=== PATIENT | male | born 1940 | race Caucasian/White ===

== ENCOUNTER → 2023-02-05 | Outpatient (CLI) | payer MEDICARE, OTHER ==
[~2023-02-05] MED LIST: ALBU2.5V10 INH; AMLO1TAB24 PO; BUDE10.7 INH; CLOP75TA2 PEG; CLOP75TA2 PO; LOSA100T46 PO; LOSA50TA28 PEG; METO1TAB33 PO; METO1TAB87 PEG; MIRA3350 PEG; ONDA-84 PO; PROC10TA5 PO; ROSU20TA61 PEG
== END ==
LOC: M ONCR 12:35
PROVIDERS: ATTEND General Practice
DX: C15.5 Malignant neoplasm of lower third of esophagus (principal); E78.5 Hyperlipidemia, unspecified; I11.9 Hypertensive heart disease without heart failure; I25.2 Old myocardial infarction; I47.1 Supraventricular tachycardia; I73.9 Peripheral vascular disease, unspecified; Z71.2 Person consulting for explanation of examination or test findings; Z72.89 Other problems related to lifestyle; Z79.02 Long term (current) use of antithrombotics/antiplatelets; Z79.899 Other long term (current) drug therapy; Z87.891 Personal history of nicotine dependence

== ENCOUNTER → 2023-02-11 | Outpatient (CLI) | payer MEDICARE, OTHER ==
[~2023-02-11] MED LIST changes: -CLOP75TA2 PEG; +LOSA100T46; -LOSA100T46 PO; -LOSA50TA28 PEG; -METO1TAB87 PEG; -MIRA3350 PEG; -ONDA-84 PO; -PROC10TA5 PO; -ROSU20TA61 PEG
== END ==
LOC: M PLARAD 15:30
PROVIDERS: ATTEND Surgery
DX: C15.5 Malignant neoplasm of lower third of esophagus (principal); N21.0 Calculus in bladder; S22.42XA Multiple fractures of ribs, left side, initial encounter for closed fracture; X58.XXXA Exposure to other specified factors, initial encounter; Y92.9 Unspecified place or not applicable; Y93.9 Activity, unspecified; Y99.9 Unspecified external cause status; K80.20 Calculus of gallbladder without cholecystitis without obstruction
CPT/HCPCS: 78815; A9552

== ENCOUNTER 2023-02-13 12:39 | Outpatient (RCR) | payer MEDICARE, OTHER ==
[~2023-02-13 12:39] MED LIST changes: -LOSA100T46; +LOSA100T46 PO
[2023-02-18] MEDS ORDERED: ONDA-84 PO (10:23)
[2023-02-18] MEDS ORDERED: PROC10TA5 PO (10:23)
== END 2023-02-22 ==
LOC: M ONCR 12:39
PROVIDERS: ATTEND General Practice
DX: C15.5 Malignant neoplasm of lower third of esophagus (principal)

== ENCOUNTER 2023-02-20 08:22 | Inpatient (IN) | payer MEDICARE, OTHER ==
[~2023-02-20] VITALS: Ht 177.8 cm; Wt 67.0 kg
[~2023-02-20 08:22] MED LIST changes: +ONDA-84 PO; +PROC10TA5 PO
[2023-02-20] MEDS ORDERED: NS 1,000 ML IV ONE (08:50)
[2023-02-20 09:33] LABS: BASO # 0.1 10^3/uL (0.0-0.2); BASO % 0.7 % (0.0-1.0); EOS # 0.2 10^3/uL (0.0-0.5); EOS % 2.4 % (0.0-3.0); HEMATOCRIT 41.4 % (42.0-52.0); HEMOGLOBIN 14.1 g/dl (13.5-17.5); LYMPH # 0.8 10^3/uL (1.5-5.0); LYMPH % 7.8 % (24.0-44.0); MEAN CORPUSCULAR HEMOGLOBIN 35.5 pg (27.0-33.0); MEAN CORPUSCULAR HGB CONC 34.1 g/dl (32.0-36.5); MEAN CORPUSCULAR VOLUME 104.3 fl (80.0-96.0); MONO # 1.2 10^3/uL (0.0-0.8); MONO % 11.6 % (2.0-8.0); NEUTROPHILS # 7.8 10^3/uL (1.5-8.5); PLATELET COUNT, AUTOMATED 189 10^3/uL (150-450); RED BLOOD COUNT 3.97 10^6/uL (4.30-6.10); WHITE BLOOD COUNT 10.2 10^3/uL (4.0-10.0)
[2023-02-20 09:38] LABS: LIPASE 49 U/L (12-53)
[2023-02-20 09:40] LABS: ALBUMIN 3.6 G/DL (3.2-5.2); ALKALINE PHOSPHATASE 100 U/L (46-116); ALT/SGPT 58 U/L (7.0-40); AST/SGOT 55 U/L (<34); BILIRUBIN,DIRECT 0.3 MG/DL (<0.4); BLOOD UREA NITROGEN 42 MG/DL (9-23); CALCIUM LEVEL 9.4 MG/DL (8.3-10.6); CARBON DIOXIDE LEVEL 31 MMOL/L (20-31); CHLORIDE LEVEL 106 MMOL/L (98-107); CREATININE FOR GFR 1.19 MG/DL (0.70-1.30); GLOMERULAR FILTRATION RATE > 60.0 (>35); GLUCOSE, FASTING 89 MG/DL (74-106); MAGNESIUM LEVEL 1.9 MG/DL (1.8-2.4); POTASSIUM SERUM 3.8 MMOL/L (3.5-5.1); SODIUM LEVEL 144 MMOL/L (136-145); TOTAL PROTEIN 6.2 G/DL (5.7-8.2)
[2023-02-20] MEDS ORDERED: DEXTROSE 50% 50ML SYRINGE IV PRN (11:35)
[2023-02-20] MEDS ORDERED: GLUCOSE 4GM CHEW TABLET PO PRN (11:35)
[2023-02-20] MEDS ORDERED: GLUCAGON INJ 1MG VIAL SC PRN (11:35)
[2023-02-20] MEDS: D5W/0.45% SODIUM CHLORIDE 1,000 ML IV SCH ×2 (12:33→21:51)
[2023-02-20] MEDS ORDERED: MED REC IN PROGRESS XX SCH (12:40)
[2023-02-20] MEDS ORDERED: HOME MED LIST COMPLETE! XX SCH (12:50)
[2023-02-20 13:30] VITALS: BP 154/76; TEMP 97.2; O2SAT 94
[2023-02-20] MEDS ORDERED: NITROGLYCERIN 2% OINT 1 GM *U/D* PKT TOP ONE (15:00)
[2023-02-20] MEDS ORDERED: LIDOCAINE 1% MDV 20ML VIAL As Ordered ONE (16:26)
[2023-02-20] MEDS ORDERED: LOSARTAN 25 MG TAB PO ONE (16:45)
[2023-02-20] MEDS ORDERED: SODIUM CHLORIDE 0.9% INJ 10 ML SYR IV PRN (18:15)
[2023-02-20 18:23] VITALS: BP 142/71
[2023-02-20] MEDS: LOSARTAN 50MG TABLET PO SCH (20:56)
[2023-02-20] MEDS ORDERED: METOPROLOL SUCC (TopROL XL) 100MG *XL* TAB PO SCH (21:00)
[2023-02-20 22:00] VITALS: BP 152/75; TEMP 98.2; O2SAT 95
[2023-02-21 05:22] VITALS: BP 153/78; TEMP 97.7; O2SAT 96
[2023-02-21] MEDS: SODIUM CHLORIDE 0.9% INJ 10 ML SYR IV SCH ×2 (05:50→17:35)
[2023-02-21 05:53] LABS: HEMATOCRIT 36.9 % (42.0-52.0); HEMOGLOBIN 12.8 g/dl (13.5-17.5); MEAN CORPUSCULAR HEMOGLOBIN 36.1 pg (27.0-33.0); MEAN CORPUSCULAR HGB CONC 34.7 g/dl (32.0-36.5); MEAN CORPUSCULAR VOLUME 103.9 fl (80.0-96.0); PLATELET COUNT, AUTOMATED 142 10^3/uL (150-450); RED BLOOD COUNT 3.55 10^6/uL (4.30-6.10)
[2023-02-21] MEDS ORDERED: diphenhydrAMINE 50MG CAP PO ONE (06:00)
[2023-02-21] MEDS ORDERED: ACETAMINOPHEN 500 MG TAB PO ONE (06:00)
[2023-02-21 06:09] LABS: INR 1.07; PROTHROMBIN TIME 14.1 SECONDS (12.5-14.5)
[2023-02-21 06:10] LABS: PARTIAL THROMBOPLASTIN TIME 39.7 SECONDS (24.8-34.2)
[2023-02-21 06:11] LABS: BLOOD UREA NITROGEN 23 MG/DL (9-23); CALCIUM LEVEL 9.3 MG/DL (8.3-10.6); CARBON DIOXIDE LEVEL 29 MMOL/L (20-31); CHLORIDE LEVEL 106 MMOL/L (98-107); CREATININE FOR GFR 0.84 MG/DL (0.70-1.30); GLOMERULAR FILTRATION RATE > 60.0 (>35); GLUCOSE, FASTING 96 MG/DL (74-106); POTASSIUM SERUM 3.5 MMOL/L (3.5-5.1); SODIUM LEVEL 141 MMOL/L (136-145)
[2023-02-21 06:33] VITALS: BP 150/70; TEMP 97.5; O2SAT 95
[2023-02-21 06:45] VITALS: BP 148/71; TEMP 97.7; O2SAT 94
[2023-02-21 10:30] VITALS: BP 150/73; TEMP 98.6; O2SAT 94
[2023-02-21] MEDS: D5W/0.45% SODIUM CHLORIDE 1,000 ML IV SCH ×2 (12:31→17:35)
[2023-02-21 14:00] VITALS: BP 155/74; TEMP 97.9; O2SAT 95
[2023-02-21] MEDS ORDERED: propofoL 200 MG/20 ML VIAL As Ordered ONE (15:15)
[2023-02-21] MEDS ORDERED: LIDOCAINE 2% 100MG/5ML SDV (FOR ANES.) As Ordered ONE (15:15)
[2023-02-21] MEDS ORDERED: fentaNYL 100 MCG/2 ML INJECTION As Ordered ONE (15:16)
[2023-02-21 16:15] VITALS: BP 159/75; TEMP 97.5; O2SAT 90
[2023-02-21] MEDS: LOSARTAN 50MG TABLET PO SCH (20:49)
[2023-02-22] MEDS: D5W/0.45% SODIUM CHLORIDE 1,000 ML IV SCH (04:15)
[2023-02-22 05:43] VITALS: BP 118/70; TEMP 98.6; O2SAT 94
[2023-02-22] MEDS: METOPROLOL TART 25 MG TABLET PO SCH ×3 (05:47→11:45)
[2023-02-22] MEDS: SODIUM CHLORIDE 0.9% INJ 10 ML SYR IV SCH ×2 (05:55→17:57)
[2023-02-22 06:37] LABS: HEMOGLOBIN 12.4 g/dl (13.5-17.5); MEAN CORPUSCULAR HGB CONC 33.5 g/dl (32.0-36.5); MEAN CORPUSCULAR VOLUME 104.5 fl (80.0-96.0); PLATELET COUNT, AUTOMATED 146 10^3/uL (150-450); RED BLOOD COUNT 3.54 10^6/uL (4.30-6.10); WHITE BLOOD COUNT 13.1 10^3/uL (4.0-10.0)
[2023-02-22 06:56] LABS: PREALBUMIN 10.6 MG/DL (10.0-40.0)
[2023-02-22 07:00] LABS: ALBUMIN 2.7 G/DL (3.2-5.2); ALKALINE PHOSPHATASE 87 U/L (46-116); ALT/SGPT 43 U/L (7.0-40); AST/SGOT 15 U/L (<34); BILIRUBIN,TOTAL 1.1 MG/DL (0.3-1.2); BLOOD UREA NITROGEN 12 MG/DL (9-23); CALCIUM LEVEL 7.9 MG/DL (8.3-10.6); CARBON DIOXIDE LEVEL 30 MMOL/L (20-31); CHLORIDE LEVEL 102 MMOL/L (98-107); CREATININE FOR GFR 0.85 MG/DL (0.70-1.30); GLOMERULAR FILTRATION RATE > 60.0 (>35); GLUCOSE, FASTING 116 MG/DL (74-106); POTASSIUM SERUM 3.5 MMOL/L (3.5-5.1); SODIUM LEVEL 136 MMOL/L (136-145); TOTAL PROTEIN 5.1 G/DL (5.7-8.2)
[2023-02-22] MEDS ORDERED: NITROGLYCERIN 0.4MG SUBL TABLET SL PRN (08:20)
[2023-02-22] MEDS ORDERED: NITROGLYCERIN 0.4MG SUBL TABLET SL STA (08:20)
[2023-02-22] MEDS ORDERED: PANTOPRAZOLE 40MG VIAL IV ONE (08:20)
[2023-02-22] MEDS ORDERED: SODIUM CHLORIDE 0.9% INJ 10 ML SYR IV PRN (08:25)
[2023-02-22] MEDS ORDERED: ISOVUE-370 76% 100ML VIAL As Ordered ONE (08:49)
[2023-02-22 08:53] LABS: CK-MB VALUE MASS 1.2 NG/ML (<3.6)
[2023-02-22 08:54] LABS: CPK CREATINE PHOSPHOKINASE 43 U/L (46-171); MB/CK RELATIVE INDEX 2.79 (< OR =4)
[2023-02-22 11:00] LABS: PROCALCITONIN 0.09 ng/ml
[2023-02-22] MEDS ORDERED: BISACODYL 10MG SUPP PR PRN (14:05)
[2023-02-22] MEDS ORDERED: ONDANSETRON 4MG ORAL DISINTEGRATING TAB PO PRN (14:05)
[2023-02-22] MEDS ORDERED: LACTULOSE 20GM/30ML SYRUP UDC PO PRN (14:05)
[2023-02-22] MEDS ORDERED: ONDANSETRON 4MG 2ML VIAL IV ONE (14:15)
[2023-02-22 14:51] LABS: C REACTIVE PROTEIN QUANTITATIV 11.9 MG/DL (<1.0)
[2023-02-22 14:52] LABS: CK-MB VALUE MASS 1.8 NG/ML (<3.6)
[2023-02-22 14:56] LABS: MB/CK RELATIVE INDEX 3.21 (< OR =4)
[2023-02-22 15:04] LABS: PROCALCITONIN 0.12 ng/ml
[2023-02-22] MEDS ORDERED: INSULIN LISPRO (NovoLOG) PER UNIT SC SCH (18:00)
[2023-02-22] MEDS ORDERED: MULTIVITAMIN -ADULT INJECTION 10 ML, ZINC/COPPER/MANGANESE/SELENIUM 1 ML in AMINO AC/EL... IV SCH (18:00)
[2023-02-22] MEDS ORDERED: FAT EMULSION IV 250 ML IV ONE (18:00)
[2023-02-22] MEDS: LOSARTAN 50MG TABLET PO SCH (20:32)
[2023-02-22] MEDS: METOPROLOL SUCC (TopROL XL) 100MG *XL* TAB PO SCH (20:33)
[2023-02-22 20:50] LABS: CK-MB VALUE MASS 2.4 NG/ML (<3.6); MB/CK RELATIVE INDEX 5.1 (< OR =4)
[2023-02-23] MEDS: SODIUM CHLORIDE 0.9% INJ 10 ML SYR IV SCH ×2 (05:55→18:24)
[2023-02-23 06:00] VITALS: BP 139/58; TEMP 97.7; O2SAT 95
[2023-02-23 06:29] LABS: BASO % 0.5 % (0.0-1.0); EOS # 0.3 10^3/uL (0.0-0.5); EOS % 3.3 % (0.0-3.0); HEMATOCRIT 37.1 % (42.0-52.0); HEMOGLOBIN 12.8 g/dl (13.5-17.5); LYMPH # 0.7 10^3/uL (1.5-5.0); LYMPH % 8.6 % (24.0-44.0); MEAN CORPUSCULAR HEMOGLOBIN 35.7 pg (27.0-33.0); MEAN CORPUSCULAR HGB CONC 34.5 g/dl (32.0-36.5); MEAN CORPUSCULAR VOLUME 103.3 fl (80.0-96.0); MONO # 0.8 10^3/uL (0.0-0.8); MONO % 9.9 % (2.0-8.0); NEUTROPHILS # 6.5 10^3/uL (1.5-8.5); NEUTROPHILS % 77.1 % (36.0-66.0); PLATELET COUNT, AUTOMATED 166 10^3/uL (150-450); RED BLOOD COUNT 3.59 10^6/uL (4.30-6.10); WHITE BLOOD COUNT 8.4 10^3/uL (4.0-10.0)
[2023-02-23 06:44] LABS: BLOOD UREA NITROGEN 14 MG/DL (9-23); CALCIUM LEVEL 8.4 MG/DL (8.3-10.6); CARBON DIOXIDE LEVEL 32 MMOL/L (20-31); CHLORIDE LEVEL 102 MMOL/L (98-107); CREATININE FOR GFR 1.03 MG/DL (0.70-1.30); GLOMERULAR FILTRATION RATE > 60.0 (>35); GLUCOSE, FASTING 112 MG/DL (74-106); POTASSIUM SERUM 3.3 MMOL/L (3.5-5.1); SODIUM LEVEL 140 MMOL/L (136-145)
[2023-02-23 06:57] LABS: ERYTHROCYTE SEDIMENTATION RATE 29 mm/hr (0-20)
[2023-02-23] MEDS ORDERED: POTASSIUM CHLORIDE 10% LIQ 20MEQ/15ML UDC PO ONE (07:00)
[2023-02-23 16:15] LABS: PROCALCITONIN 0.08 ng/ml
[2023-02-23] MEDS: INSULIN LISPRO (NovoLOG) PER UNIT SC SCH (18:00)
[2023-02-23] MEDS ORDERED: AMINO AC/ELECTROLYTE/DEX/CALC 1,000 ML IV SCH (18:00)
[2023-02-23] MEDS ORDERED: FAT EMULSION IV 250 ML IV ONE (18:00)
[2023-02-23] MEDS: LOSARTAN 50MG TABLET PO SCH (21:00)
[2023-02-23] MEDS: METOPROLOL SUCC (TopROL XL) 100MG *XL* TAB PO SCH ×2 (21:00→21:20)
[2023-02-24] MEDS: SODIUM CHLORIDE 0.9% INJ 10 ML SYR IV SCH ×2 (05:35→18:25)
[2023-02-24] MEDS: INSULIN LISPRO (NovoLOG) PER UNIT SC SCH ×4 (05:39→18:00)
[2023-02-24 06:00] VITALS: BP 142/78; TEMP 97.9; O2SAT 98
[2023-02-24 06:27] LABS: BASO % 0.4 % (0.0-1.0); EOS # 0.2 10^3/uL (0.0-0.5); EOS % 2.3 % (0.0-3.0); HEMATOCRIT 35.7 % (42.0-52.0); HEMOGLOBIN 12.4 g/dl (13.5-17.5); LYMPH # 0.6 10^3/uL (1.5-5.0); LYMPH % 6.7 % (24.0-44.0); MEAN CORPUSCULAR HEMOGLOBIN 35.9 pg (27.0-33.0); MEAN CORPUSCULAR HGB CONC 34.7 g/dl (32.0-36.5); MEAN CORPUSCULAR VOLUME 103.5 fl (80.0-96.0); MONO # 0.8 10^3/uL (0.0-0.8); MONO % 9.2 % (2.0-8.0); NEUTROPHILS # 6.7 10^3/uL (1.5-8.5); NEUTROPHILS % 80.8 % (36.0-66.0); PLATELET COUNT, AUTOMATED 165 10^3/uL (150-450); RED BLOOD COUNT 3.45 10^6/uL (4.30-6.10); WHITE BLOOD COUNT 8.3 10^3/uL (4.0-10.0)
[2023-02-24 06:52] LABS: ERYTHROCYTE SEDIMENTATION RATE 26 mm/hr (0-20)
[2023-02-24 06:57] LABS: BLOOD UREA NITROGEN 12 MG/DL (9-23); CALCIUM LEVEL 8.8 MG/DL (8.3-10.6); CARBON DIOXIDE LEVEL 32 MMOL/L (20-31); CHLORIDE LEVEL 103 MMOL/L (98-107); CREATININE FOR GFR 0.88 MG/DL (0.70-1.30); GLOMERULAR FILTRATION RATE > 60.0 (>35); GLUCOSE, FASTING 98 MG/DL (74-106); POTASSIUM SERUM 3.5 MMOL/L (3.5-5.1); SODIUM LEVEL 137 MMOL/L (136-145)
[2023-02-24 07:09] LABS: PROCALCITONIN 0.07 ng/ml
[2023-02-24] MEDS ORDERED: FAT EMULSION IV 250 ML IV ONE (18:00)
[2023-02-24] MEDS ORDERED: AMINO AC/ELECTROLYTE/DEX/CALC 2,000 ML IV SCH (18:00)
[2023-02-24] MEDS: METOPROLOL SUCC (TopROL XL) 100MG *XL* TAB PO SCH (20:18)
[2023-02-24] MEDS: LOSARTAN 50MG TABLET PO SCH (20:18)
[2023-02-25] MEDS: SODIUM CHLORIDE 0.9% INJ 10 ML SYR IV SCH ×2 (05:45→18:03)
[2023-02-25] MEDS: INSULIN LISPRO (NovoLOG) PER UNIT SC SCH ×4 (05:45→17:25)
[2023-02-25 06:00] VITALS: BP 152/84; TEMP 98.2; O2SAT 94
[2023-02-25 06:07] LABS: BASO % 0.4 % (0.0-1.0); EOS # 0.3 10^3/uL (0.0-0.5); EOS % 4.2 % (0.0-3.0); HEMATOCRIT 35.7 % (42.0-52.0); HEMOGLOBIN 12.5 g/dl (13.5-17.5); LYMPH # 0.6 10^3/uL (1.5-5.0); LYMPH % 8.4 % (24.0-44.0); MEAN CORPUSCULAR HEMOGLOBIN 35.6 pg (27.0-33.0); MEAN CORPUSCULAR VOLUME 101.7 fl (80.0-96.0); MONO # 0.7 10^3/uL (0.0-0.8); MONO % 10.3 % (2.0-8.0); NEUTROPHILS # 5.3 10^3/uL (1.5-8.5); NEUTROPHILS % 76.1 % (36.0-66.0); PLATELET COUNT, AUTOMATED 167 10^3/uL (150-450); RED BLOOD COUNT 3.51 10^6/uL (4.30-6.10); WHITE BLOOD COUNT 6.9 10^3/uL (4.0-10.0)
[2023-02-25 06:17] LABS: BLOOD UREA NITROGEN 11 MG/DL (9-23); CALCIUM LEVEL 8.8 MG/DL (8.3-10.6); CARBON DIOXIDE LEVEL 33 MMOL/L (20-31); CHLORIDE LEVEL 102 MMOL/L (98-107); CREATININE FOR GFR 0.84 MG/DL (0.70-1.30); GLOMERULAR FILTRATION RATE > 60.0 (>35); GLUCOSE, FASTING 117 MG/DL (74-106); POTASSIUM SERUM 3.7 MMOL/L (3.5-5.1); SODIUM LEVEL 139 MMOL/L (136-145)
[2023-02-25 06:21] LABS: ERYTHROCYTE SEDIMENTATION RATE 36 mm/hr (0-20)
[2023-02-25 06:28] LABS: PROCALCITONIN 0.06 ng/ml
[2023-02-25 15:12] LABS: BODY FLUID CULTURE Not indicated. (.); LEGIONELLA ANTIGEN URINE Negative (Negative); ORGANISM ID Not indicated. (.); SPECIMEN SOURCE Urine (.); URINE STREP PNEUMONIAE ANTIGEN Negative (Negative)
[2023-02-25] MEDS ORDERED: MULTIVITAMIN -ADULT INJECTION 10 ML, ZINC/COPPER/MANGANESE/SELENIUM 1 ML in AMINO AC/EL... IV SCH (18:00)
[2023-02-25] MEDS ORDERED: FAT EMULSION IV 250 ML IV ONE (18:00)
[2023-02-25] MEDS: LOSARTAN 50MG TABLET PO SCH (20:32)
[2023-02-25] MEDS: METOPROLOL SUCC (TopROL XL) 100MG *XL* TAB PO SCH (20:33)
[2023-02-25 20:35] VITALS: BP 149/88; TEMP 98.4; O2SAT 93
[2023-02-26] VITALS (8 sets, daily range): BP systolic 116–152; BP diastolic 52–97; TEMP 97.2–97.9; O2SAT 91–95
[2023-02-26] MEDS: INSULIN LISPRO (NovoLOG) PER UNIT SC SCH ×4 (06:00→17:37)
[2023-02-26] MEDS: SODIUM CHLORIDE 0.9% INJ 10 ML SYR IV SCH ×2 (06:31→18:18)
[2023-02-26 07:31] LABS: BASO % 0.5 % (0.0-1.0); EOS # 0.4 10^3/uL (0.0-0.5); EOS % 5.7 % (0.0-3.0); HEMOGLOBIN 13.3 g/dl (13.5-17.5); LYMPH # 0.6 10^3/uL (1.5-5.0); LYMPH % 8.1 % (24.0-44.0); MEAN CORPUSCULAR HEMOGLOBIN 35.5 pg (27.0-33.0); MEAN CORPUSCULAR VOLUME 101.3 fl (80.0-96.0); MONO # 0.8 10^3/uL (0.0-0.8); MONO % 10.9 % (2.0-8.0); NEUTROPHILS # 5.5 10^3/uL (1.5-8.5); NEUTROPHILS % 74.1 % (36.0-66.0); PLATELET COUNT, AUTOMATED 172 10^3/uL (150-450); RED BLOOD COUNT 3.75 10^6/uL (4.30-6.10); WHITE BLOOD COUNT 7.5 10^3/uL (4.0-10.0)
[2023-02-26 07:42] LABS: INR 1.03; PROTHROMBIN TIME 13.7 SECONDS (12.5-14.5)
[2023-02-26 07:43] LABS: PARTIAL THROMBOPLASTIN TIME 42.6 SECONDS (24.8-34.2)
[2023-02-26 08:15] LABS: ERYTHROCYTE SEDIMENTATION RATE 37 mm/hr (0-20)
[2023-02-26] MEDS ORDERED: LIDOCAINE 2% 100MG/5ML SDV (FOR ANES.) As Ordered ONE (09:23)
[2023-02-26] MEDS ORDERED: fentaNYL 100 MCG/2 ML INJECTION As Ordered ONE (09:23)
[2023-02-26] MEDS ORDERED: propofoL 200 MG/20 ML VIAL As Ordered ONE (09:23)
[2023-02-26] MEDS ORDERED: MIDAZOLAM INJ 2MG/2ML VIAL As Ordered ONE (09:23)
[2023-02-26] MEDS ORDERED: ONDANSETRON 4MG 2ML VIAL As Ordered ONE (09:23)
[2023-02-26] MEDS ORDERED: ROCURONIUM BROMIDE 50MG/5ML VIAL As Ordered ONE (09:23)
[2023-02-26] MEDS ORDERED: ceFAZolin 2 GM/D5W 50 ML IV BAG As Ordered ONE (09:57)
[2023-02-26] MEDS ORDERED: VASOPRESSIN INJ 20UNITS/ML 1ML VIAL As Ordered ONE (10:04)
[2023-02-26] MEDS ORDERED: ACETAMINOPHEN 1000MG 100ML IV BAG As Ordered ONE (10:17)
[2023-02-26] MEDS ORDERED: SUGAMMADEX SODIUM 500 MG/5 ML VIAL (BRIDION) As Ordered ONE (10:45)
[2023-02-26] MEDS ORDERED: LR 1,000 ML IV SCH (10:55)
[2023-02-26] MEDS ORDERED: fentaNYL 100 MCG/2 ML INJECTION IV PRN (10:55)
[2023-02-26] MEDS ORDERED: ONDANSETRON 4MG 2ML VIAL IV PRN (10:55)
[2023-02-26] MEDS: KETOROLAC 30 MG/ML 1ML VIAL IV SCH ×3 (11:00→23:21)
[2023-02-26] MEDS ORDERED: hydrALAZINE 20MG/ML 1ML VIAL IV STA (11:13)
[2023-02-26 11:47] LABS: BLOOD UREA NITROGEN 17 MG/DL (9-23); CALCIUM LEVEL 9.7 MG/DL (8.3-10.6); CARBON DIOXIDE LEVEL 31 MMOL/L (20-31); CHLORIDE LEVEL 100 MMOL/L (98-107); GLOMERULAR FILTRATION RATE > 60.0 (>35); GLUCOSE, FASTING 97 MG/DL (74-106); POTASSIUM SERUM 3.9 MMOL/L (3.5-5.1); SODIUM LEVEL 138 MMOL/L (136-145)
[2023-02-26 12:10] LABS: PROCALCITONIN 0.06 ng/ml
[2023-02-26] MEDS ORDERED: AMINO AC/ELECTROLYTE/DEX/CALC 2,000 ML IV SCH (18:00)
[2023-02-26] MEDS ORDERED: FAT EMULSION IV 250 ML IV ONE (18:00)
[2023-02-26] MEDS: SYMBICORT 80/4.5MCG INHALER 6GM INH SCH (20:22)
[2023-02-26] MEDS: LOSARTAN 50MG TABLET PO SCH (21:00)
[2023-02-26] MEDS: METOPROLOL SUCC (TopROL XL) 100MG *XL* TAB PO SCH (21:00)
[2023-02-27 02:00] VITALS: BP 153/72; TEMP 97.9; O2SAT 93
[2023-02-27] MEDS: SODIUM CHLORIDE 0.9% INJ 10 ML SYR IV SCH ×2 (05:00→18:34)
[2023-02-27] MEDS: KETOROLAC 30 MG/ML 1ML VIAL IV SCH ×3 (05:00→16:12)
[2023-02-27] MEDS: INSULIN LISPRO (NovoLOG) PER UNIT SC SCH ×3 (05:50→11:43)
[2023-02-27 06:00] VITALS: BP 135/68; TEMP 98.1; O2SAT 92
[2023-02-27 06:41] LABS: BASO % 0.2 % (0.0-1.0); EOS % 0.2 % (0.0-3.0); HEMATOCRIT 36.9 % (42.0-52.0); HEMOGLOBIN 12.6 g/dl (13.5-17.5); LYMPH # 0.5 10^3/uL (1.5-5.0); LYMPH % 3.8 % (24.0-44.0); MEAN CORPUSCULAR HEMOGLOBIN 35.1 pg (27.0-33.0); MEAN CORPUSCULAR HGB CONC 34.1 g/dl (32.0-36.5); MEAN CORPUSCULAR VOLUME 102.8 fl (80.0-96.0); MONO % 8.3 % (2.0-8.0); NEUTROPHILS # 10.6 10^3/uL (1.5-8.5); NEUTROPHILS % 86.8 % (36.0-66.0); PLATELET COUNT, AUTOMATED 171 10^3/uL (150-450); RED BLOOD COUNT 3.59 10^6/uL (4.30-6.10); WHITE BLOOD COUNT 12.3 10^3/uL (4.0-10.0)
[2023-02-27 07:02] LABS: BLOOD UREA NITROGEN 26 MG/DL (9-23); CALCIUM LEVEL 9.5 MG/DL (8.3-10.6); CARBON DIOXIDE LEVEL 31 MMOL/L (20-31); CHLORIDE LEVEL 101 MMOL/L (98-107); CREATININE FOR GFR 0.89 MG/DL (0.70-1.30); GLOMERULAR FILTRATION RATE > 60.0 (>35); GLUCOSE, FASTING 100 MG/DL (74-106); POTASSIUM SERUM 3.9 MMOL/L (3.5-5.1); SODIUM LEVEL 137 MMOL/L (136-145)
[2023-02-27] MEDS: TIOTROPIUM INHALER/CAPSULE (SPIRIVA) INH SCH (08:00)
[2023-02-27] MEDS: SYMBICORT 80/4.5MCG INHALER 6GM INH SCH ×2 (08:00→20:22)
[2023-02-27] MEDS ORDERED: LACTULOSE 20GM/30ML SYRUP UDC PEG PRN (11:40)
[2023-02-27] MEDS: METOPROLOL TART 25 MG TABLET PEG SCH (20:56)
[2023-02-27] MEDS ORDERED: LOSARTAN 50MG TABLET PEG SCH (21:00)
[2023-02-28] MEDS: SODIUM CHLORIDE 0.9% INJ 10 ML SYR IV SCH (06:05)
[2023-02-28 06:09] VITALS: BP 93/57; TEMP 97.3; O2SAT 94
[2023-02-28 06:13] VITALS: BP 112/68
[2023-02-28 06:21] LABS: BASO # 0.1 10^3/uL (0.0-0.2); BASO % 0.7 % (0.0-1.0); EOS # 0.2 10^3/uL (0.0-0.5); EOS % 2.1 % (0.0-3.0); HEMATOCRIT 41.6 % (42.0-52.0); HEMOGLOBIN 13.9 g/dl (13.5-17.5); LYMPH # 0.9 10^3/uL (1.5-5.0); LYMPH % 9.3 % (24.0-44.0); MEAN CORPUSCULAR HGB CONC 33.4 g/dl (32.0-36.5); MEAN CORPUSCULAR VOLUME 104.8 fl (80.0-96.0); MONO # 0.8 10^3/uL (0.0-0.8); MONO % 7.9 % (2.0-8.0); NEUTROPHILS # 7.6 10^3/uL (1.5-8.5); NEUTROPHILS % 79.4 % (36.0-66.0); PLATELET COUNT, AUTOMATED 210 10^3/uL (150-450); RED BLOOD COUNT 3.97 10^6/uL (4.30-6.10); WHITE BLOOD COUNT 9.6 10^3/uL (4.0-10.0)
[2023-02-28] MEDS: TIOTROPIUM INHALER/CAPSULE (SPIRIVA) INH SCH (07:40)
[2023-02-28] MEDS: SYMBICORT 80/4.5MCG INHALER 6GM INH SCH (07:40)
[2023-02-28 09:00] VITALS: BP 108/68
[2023-02-28] MEDS ORDERED: ENOXAPARIN 40MG/0.4ML SYRINGE (J1650 PER 10MG) SC SCH (09:00)
[2023-02-28] MEDS: METOPROLOL TART 25 MG TABLET PEG SCH (09:00)
[2023-02-28 11:58] VITALS: BP 118/72
[2023-02-28] MEDS ORDERED: CLOP75TA2 PEG (12:37)
[2023-02-28] MEDS ORDERED: LOSA50TA28 PEG (12:37)
[2023-02-28] MEDS ORDERED: MIRA3350 PEG (12:37)
[2023-02-28] MEDS ORDERED: METO1TAB87 PEG (12:37)
[2023-02-28] MEDS ORDERED: ROSU20TA61 PEG (19:08)
== END 2023-02-28 15:30 | disposition home health service (06) | DRG 375 ==
LOC: M ED 08:22 → M ED INP 11:32 → M MS5PR 13:20
PROVIDERS: ADMIT General Practice; ATTEND Internal Medicine
PROC: 02HV33Z Insertion of Infusion Device into Superior Vena Cava, Percutaneous Approach (ICD-10-PCS; 2023-02-20)
PROC: 0DJ08ZZ Inspection of Upper Intestinal Tract, Via Natural or Artificial Opening Endoscopic (ICD-10-PCS; principal; 2023-02-21 14:45)
PROC: 0DH64UZ Insertion of Feeding Device into Stomach, Percutaneous Endoscopic Approach (ICD-10-PCS; 2023-02-26)
DX: C16.0 Malignant neoplasm of cardia (principal); C79.51 Secondary malignant neoplasm of bone; C77.2 Secondary and unspecified malignant neoplasm of intra-abdominal lymph nodes; R13.10 Dysphagia, unspecified; J44.9 Chronic obstructive pulmonary disease, unspecified; I10 Essential (primary) hypertension; I73.9 Peripheral vascular disease, unspecified; I25.10 Atherosclerotic heart disease of native coronary artery without angina pectoris; Z95.5 Presence of coronary angioplasty implant and graft; R91.1 Solitary pulmonary nodule; Z79.899 Other long term (current) drug therapy

== ENCOUNTER → 2023-03-25 | Outpatient (RCR) | payer MEDICARE, OTHER ==
[~2023-03-25] MED LIST changes: +CLOP75TA2 PEG; +LOSA50TA28 PEG; +METO1TAB87 PEG; +MIRA3350 PEG; +ROSU20TA61 PEG
== END ==
LOC: M ONCR 02-27 09:12
PROVIDERS: ATTEND General Practice
DX: C15.5 Malignant neoplasm of lower third of esophagus (principal)

== ENCOUNTER 2023-04-05 09:14 | Outpatient (RCR) | payer MEDICARE, OTHER ==
[~2023-04-05 09:14] MED LIST changes: +ONDA-83 PO
== END 2023-04-25 ==
LOC: M ONCR 09:14
PROVIDERS: ATTEND General Practice
DX: Z51.0 Encounter for antineoplastic radiation therapy (principal); C15.5 Malignant neoplasm of lower third of esophagus

== ENCOUNTER → 2023-07-08 | Outpatient (CLI) | payer MEDICARE, OTHER | LOC: M PLARAD 14:03 | PROVIDERS: ATTEND General Practice | DX: C15.5 Malignant neoplasm of lower third of esophagus (principal); K76.89 Other specified diseases of liver; K80.20 Calculus of gallbladder without cholecystitis without obstruction; K57.90 Diverticulosis of intestine, part unspecified, without perforation or abscess without bleeding; N21.0 Calculus in bladder; K40.90 Unilateral inguinal hernia, without obstruction or gangrene, not specified as recurrent | CPT/HCPCS: 78815; A9552 ==

== ENCOUNTER → 2023-07-09 | Outpatient (CLI) | payer MEDICARE, OTHER | LOC: M ONCR 09:08 | PROVIDERS: ATTEND General Practice | DX: C15.5 Malignant neoplasm of lower third of esophagus (principal); F10.21 Alcohol dependence, in remission; Z71.2 Person consulting for explanation of examination or test findings; Z79.02 Long term (current) use of antithrombotics/antiplatelets; Z79.899 Other long term (current) drug therapy; Z87.891 Personal history of nicotine dependence; Z92.3 Personal history of irradiation ==

== ENCOUNTER 2023-08-01 12:04 | Inpatient (IN) | payer MEDICARE, OTHER ==
[~2023-08-01] VITALS: Ht 177.8 cm; Wt 74.4 kg
[~2023-08-01 12:04] MED LIST changes: +AVOD0.5C PO; +LIDOCAINE 2% 100MG/5ML SDV (FOR ANES.) As Ordered ONE; +propofoL 200 MG/20 ML VIAL As Ordered ONE
[2023-08-01] MEDS ORDERED: METOPROLOL 5 MG/5 ML VIAL As Ordered ONE ×2 (13:16→13:59)
[2023-08-01] MEDS ORDERED: ESMOLOL INJ 100MG/10ML VIAL As Ordered ONE (13:16)
[2023-08-01] MEDS ORDERED: MIDAZOLAM INJ 2MG/2ML VIAL As Ordered ONE (13:33)
[2023-08-01] MEDS: METOPROLOL 5 MG/5 ML VIAL IV PRN ×5 (14:04→14:27)
[2023-08-01] MEDS ORDERED: METOPROLOL 5 MG/5 ML VIAL IV STA (14:39)
[2023-08-01] MEDS ORDERED: HEPARIN SOD (PORCINE) 5000UNITS/ML 1ML VIAL/SYRINGE SC SCH (14:45)
[2023-08-01] MEDS ORDERED: NS 1,000 ML IV ONE (14:45)
[2023-08-01] MEDS ORDERED: METOPROLOL TART 25 MG TABLET PO SCH (15:05)
[2023-08-01 15:23] LABS: HEMATOCRIT 33.2 % (42.0-52.0); HEMOGLOBIN 11.2 g/dl (13.5-17.5); MEAN CORPUSCULAR HEMOGLOBIN 37.8 pg (27.0-33.0); MEAN CORPUSCULAR HGB CONC 33.7 g/dl (32.0-36.5); MEAN CORPUSCULAR VOLUME 112.2 fl (80.0-96.0); PLATELET COUNT, AUTOMATED 156 10^3/uL (150-450); RED BLOOD COUNT 2.96 10^6/uL (4.30-6.10); WHITE BLOOD COUNT 6.9 10^3/uL (4.0-10.0)
[2023-08-01] MEDS ORDERED: LEVALBUTEROL 1.25MG 0.5ML CONCENTRATE NEB INH PRN (15:35)
[2023-08-01 15:52] LABS: BLOOD UREA NITROGEN 19 MG/DL (9-23); CALCIUM LEVEL 7.8 MG/DL (8.3-10.6); CARBON DIOXIDE LEVEL 27 MMOL/L (20-31); CHLORIDE LEVEL 106 MMOL/L (98-107); CREATININE FOR GFR 0.97 MG/DL (0.70-1.30); GLOMERULAR FILTRATION RATE > 60.0 (>35); GLUCOSE, FASTING 84 MG/DL (74-106); MAGNESIUM LEVEL 1.9 MG/DL (1.8-2.4); POTASSIUM SERUM 4.6 MMOL/L (3.5-5.1); SODIUM LEVEL 139 MMOL/L (136-145)
[2023-08-01 15:53] VITALS: BP 121/75; TEMP 97
[2023-08-01 15:55] LABS: THYROID STIMULATING HORMONE 2.391 uIU/ML (0.55-4.78)
[2023-08-01 16:00] LABS: PROCALCITONIN 0.06 ng/ml
[2023-08-01] MEDS ORDERED: ISOVUE-370 76% 100ML VIAL As Ordered ONE (16:01)
[2023-08-01] MEDS ORDERED: MED REC IN PROGRESS XX SCH (17:05)
[2023-08-01] MEDS ORDERED: CILO100T3 PO (17:12)
[2023-08-01] MEDS: atenoloL 50 MG TAB PO SCH (17:13)
[2023-08-01] MEDS ORDERED: HOME MED LIST COMPLETE! XX SCH (17:20)
[2023-08-01] MEDS ORDERED: CLOP75TA2 PO (17:25)
[2023-08-01 19:42] VITALS: BP 119/65; TEMP 97.6; O2SAT 92
[2023-08-01] MEDS: SYMBICORT 80/4.5MCG INHALER 6GM INH SCH (20:09)
[2023-08-01] MEDS: APIXABAN 5 MG TAB (ELIQUIS) PO SCH (21:00)
[2023-08-01 23:00] VITALS: O2SAT 86
[2023-08-01 23:06] VITALS: BP 139/70; TEMP 97.6; O2SAT 94
[2023-08-02] VITALS (36 sets, daily range): BP systolic 115–210; BP diastolic 57–100; TEMP 97.4–98.3; O2SAT 84–100
[2023-08-02] MEDS ORDERED: LEVALBUTEROL 1.25MG 0.5ML CONCENTRATE NEB INH PRN (02:30)
[2023-08-02 02:47] LABS: ABG BASE EXCESS -6.8 (-2.0-2.0); ABG O2 SATURATION 93.8 % (95.0-99.0); ABG PARTIAL PRESSURE CO2 44.8 mmHg (35.0-45.0); ABG PARTIAL PRESSURE O2 80.6 mmHg (75.0-100.0); ABG STANDARD HCO3 18.9 MMOL/L. (22.0-26.0); ABG TOTAL CO2 21.4 MMOL/L (23.0-31.0); ABG pH (ARTERIAL) 7.268 UNITS (7.350-7.450)
[2023-08-02] MEDS ORDERED: ALBUTEROL SULFATE 2.5MG/0.5ML INH NEB SOLN NEB ONE (03:00)
[2023-08-02] MEDS ORDERED: FUROSEMIDE 100MG/10ML VIAL IV ONE (03:00)
[2023-08-02 03:22] LABS: BASO # 0.1 10^3/uL (0.0-0.2); BASO % 0.6 % (0.0-1.0); EOS # 0.2 10^3/uL (0.0-0.5); EOS % 1.9 % (0.0-3.0); HEMATOCRIT 45.3 % (42.0-52.0); LYMPH # 0.9 10^3/uL (1.5-5.0); LYMPH % 7.2 % (24.0-44.0); MEAN CORPUSCULAR HEMOGLOBIN 36.9 pg (27.0-33.0); MEAN CORPUSCULAR HGB CONC 32.7 g/dl (32.0-36.5); MONO # 0.9 10^3/uL (0.0-0.8); MONO % 7.9 % (2.0-8.0); NEUTROPHILS # 9.7 10^3/uL (1.5-8.5); NEUTROPHILS % 81.9 % (36.0-66.0); PLATELET COUNT, AUTOMATED 216 10^3/uL (150-450); RED BLOOD COUNT 4.01 10^6/uL (4.30-6.10); WHITE BLOOD COUNT 11.8 10^3/uL (4.0-10.0)
[2023-08-02 03:30] LABS: HEMOGLOBIN 14.8 g/dl (13.5-17.5)
[2023-08-02 03:36] LABS: CK-MB VALUE MASS 3.1 NG/ML (<3.6)
[2023-08-02 03:37] LABS: BLOOD UREA NITROGEN 24 MG/DL (9-23); CALCIUM LEVEL 8.6 MG/DL (8.3-10.6); CARBON DIOXIDE LEVEL 23 MMOL/L (20-31); CHLORIDE LEVEL 105 MMOL/L (98-107); CREATININE FOR GFR 1.14 MG/DL (0.70-1.30); GLOMERULAR FILTRATION RATE > 60.0 (>35); GLUCOSE, FASTING 117 MG/DL (74-106); SODIUM LEVEL 136 MMOL/L (136-145)
[2023-08-02 03:44] LABS: MB/CK RELATIVE INDEX 4.42 (< OR =4)
[2023-08-02] MEDS: SYMBICORT 80/4.5MCG INHALER 6GM INH SCH ×2 (08:29→19:30)
[2023-08-02 08:45] LABS: ABG BASE EXCESS -0.3 (-2.0-2.0); ABG HCO3 23.8 MMOL/L (22.0-26.0); ABG PARTIAL PRESSURE O2 64.5 mmHg (75.0-100.0); ABG STANDARD HCO3 24.2 MMOL/L. (22.0-26.0); ABG TOTAL CO2 24.9 MMOL/L (23.0-31.0); ABG pH (ARTERIAL) 7.426 UNITS (7.350-7.450)
[2023-08-02] MEDS: APIXABAN 5 MG TAB (ELIQUIS) PO SCH (09:07)
[2023-08-02] MEDS: DUTASTERIDE 0.5 MG CAP (AVODART) PO SCH (09:07)
[2023-08-02] MEDS: atenoloL 50 MG TAB PO SCH (09:17)
[2023-08-02] MEDS: LEVALBUTEROL 1.25MG 0.5ML CONCENTRATE NEB INH SCH ×3 (10:49→19:30)
[2023-08-02] MEDS ORDERED: guaiFENesin 200 MG TAB PO PRN (11:50)
[2023-08-02] MEDS: cefTRIAXone SOD 1 GM in D5W MINI-BAG PLUS 50 ML IV SCH (12:35)
[2023-08-02] MEDS: AZITHROMYCIN 250MG TABLET PO SCH (12:35)
[2023-08-02] MEDS ORDERED: DIGOXIN INJ 0.5 MG/2 ML AMP IV ONE (13:00)
[2023-08-02] MEDS: TIOTROPIUM INHALER/CAPSULE (SPIRIVA) INH SCH (15:05)
[2023-08-02] MEDS ORDERED: ELIQ5TAB PO (17:03)
[2023-08-02] MEDS ORDERED: DIGOXIN 0.25 MG TAB PO ONE (20:00)
[2023-08-02] MEDS ORDERED: APIXABAN 5 MG TAB (ELIQUIS) PO SCH (21:00)
[2023-08-02] MEDS ORDERED: ENOXAPARIN 80MG/0.8ML SYRINGE (J1650 PER 10MG) SC SCH (21:00)
[2023-08-03] VITALS (14 sets, daily range): BP systolic 106–148; BP diastolic 64–75; TEMP 96.8–98.1; O2SAT 82–98
[2023-08-03] MEDS: LEVALBUTEROL 1.25MG 0.5ML CONCENTRATE NEB INH SCH ×2 (01:46→08:28)
[2023-08-03 07:23] LABS: BASO % 0.3 % (0.0-1.0); EOS # 0.1 10^3/uL (0.0-0.5); EOS % 1.1 % (0.0-3.0); HEMATOCRIT 36.1 % (42.0-52.0); LYMPH # 0.3 10^3/uL (1.5-5.0); LYMPH % 2.9 % (24.0-44.0); MEAN CORPUSCULAR HEMOGLOBIN 37.4 pg (27.0-33.0); MEAN CORPUSCULAR HGB CONC 33.2 g/dl (32.0-36.5); MEAN CORPUSCULAR VOLUME 112.5 fl (80.0-96.0); MONO # 1.1 10^3/uL (0.0-0.8); NEUTROPHILS # 7.7 10^3/uL (1.5-8.5); NEUTROPHILS % 83.2 % (36.0-66.0); PLATELET COUNT, AUTOMATED 147 10^3/uL (150-450); RED BLOOD COUNT 3.21 10^6/uL (4.30-6.10); WHITE BLOOD COUNT 9.3 10^3/uL (4.0-10.0)
[2023-08-03 07:40] LABS: BLOOD UREA NITROGEN 24 MG/DL (9-23); CALCIUM LEVEL 8.2 MG/DL (8.3-10.6); CARBON DIOXIDE LEVEL 29 MMOL/L (20-31); CHLORIDE LEVEL 102 MMOL/L (98-107); CREATININE FOR GFR 0.94 MG/DL (0.70-1.30); GLOMERULAR FILTRATION RATE > 60.0 (>35); GLUCOSE, FASTING 94 MG/DL (74-106); POTASSIUM SERUM 4.5 MMOL/L (3.5-5.1); SODIUM LEVEL 137 MMOL/L (136-145)
[2023-08-03] MEDS: SYMBICORT 80/4.5MCG INHALER 6GM INH SCH (08:28)
[2023-08-03] MEDS: TIOTROPIUM INHALER/CAPSULE (SPIRIVA) INH SCH (08:28)
[2023-08-03] MEDS ORDERED: ENOXAPARIN 100MG/1ML SYRINGE (J1650 PER 10MG) SC SCH (09:00)
[2023-08-03] MEDS ORDERED: DIGOXIN 0.125 MG TAB PO SCH (09:00)
[2023-08-03] MEDS: cefTRIAXone SOD 1 GM in D5W MINI-BAG PLUS 50 ML IV SCH (10:24)
[2023-08-03] MEDS: AZITHROMYCIN 250MG TABLET PO SCH (10:25)
[2023-08-03] MEDS: DUTASTERIDE 0.5 MG CAP (AVODART) PO SCH (10:25)
[2023-08-03] MEDS ORDERED: LEVO1TAB40 PO (11:07)
[2023-08-03] MEDS ORDERED: DIGO0.123 PO (11:07)
== END 2023-08-03 14:05 | disposition home health service (06) | DRG 308 ==
LOC: M OPP 12:04 → M ED INP 12:05 → M PCU 15:49 → OBSVTOIN 08-02 09:51
PROVIDERS: ADMIT Internal Medicine; ATTEND Internal Medicine
PROC: B246ZZZ Ultrasonography of Right and Left Heart (ICD-10-PCS; principal; 2023-08-02)
DX: I48.92 Unspecified atrial flutter (principal); J96.01 Acute respiratory failure with hypoxia; J18.9 Pneumonia, unspecified organism; C15.9 Malignant neoplasm of esophagus, unspecified; E87.20 Acidosis, unspecified; I50.1 Left ventricular failure, unspecified; Z92.3 Personal history of irradiation; Z86.73 Personal history of transient ischemic attack (TIA), and cerebral infarction without residual deficits; I08.0 Rheumatic disorders of both mitral and aortic valves; I25.2 Old myocardial infarction; Z66 Do not resuscitate; N40.0 Benign prostatic hyperplasia without lower urinary tract symptoms; I11.0 Hypertensive heart disease with heart failure; J44.9 Chronic obstructive pulmonary disease, unspecified; I25.10 Atherosclerotic heart disease of native coronary artery without angina pectoris; Z95.5 Presence of coronary angioplasty implant and graft; I73.9 Peripheral vascular disease, unspecified; E78.5 Hyperlipidemia, unspecified; Z87.891 Personal history of nicotine dependence; Z79.899 Other long term (current) drug therapy; Z20.822 Contact with and (suspected) exposure to COVID-19

== ENCOUNTER → 2023-10-15 | Outpatient (CLI) | payer MEDICARE, OTHER ==
[~2023-10-15] MED LIST changes: +CILO100T3 PO; +DIGO0.123 PO; +ELIQ5TAB PO; +LEVO1TAB40 PO; -LIDOCAINE 2% 100MG/5ML SDV (FOR ANES.) As Ordered ONE; -propofoL 200 MG/20 ML VIAL As Ordered ONE
== END ==
LOC: M ONCR 09:40
PROVIDERS: ATTEND General Practice
DX: C15.5 Malignant neoplasm of lower third of esophagus (principal); Z71.2 Person consulting for explanation of examination or test findings; Z75.1 Person awaiting admission to adequate facility elsewhere; Z79.01 Long term (current) use of anticoagulants; Z79.899 Other long term (current) drug therapy; Z87.891 Personal history of nicotine dependence; Z88.6 Allergy status to analgesic agent; Z92.3 Personal history of irradiation

== ENCOUNTER → 2024-04-21 | Outpatient (CLI) | payer MEDICARE, OTHER | LOC: M ONCR 10:07 | PROVIDERS: ATTEND General Practice | DX: C15.5 Malignant neoplasm of lower third of esophagus (principal); F10.21 Alcohol dependence, in remission; Z87.891 Personal history of nicotine dependence; Z79.01 Long term (current) use of anticoagulants; Z79.899 Other long term (current) drug therapy; Z92.3 Personal history of irradiation ==

== ENCOUNTER → 2024-08-17 | Outpatient (CLI) | payer MEDICARE, OTHER ==
[~2024-08-17] MED LIST changes: -ROSU20TA61 PEG; +ROSU20TA86 PEG
== END ==
LOC: M PLARAD 10:16
PROVIDERS: ATTEND General Practice
DX: C15.5 Malignant neoplasm of lower third of esophagus (principal)
CPT/HCPCS: 78815; A9552

== ENCOUNTER 2024-09-11 11:18 | Outpatient (RCR) | payer MEDICARE, OTHER | END 2024-09-25 | LOC: M ONCR 11:18 | PROVIDERS: ATTEND General Practice | DX: Z51.0 Encounter for antineoplastic radiation therapy (principal); C15.5 Malignant neoplasm of lower third of esophagus ==

== ENCOUNTER → 2024-10-22 | Outpatient (CLI) | payer MEDICARE, OTHER | LOC: M ONCR 10:18 | PROVIDERS: ATTEND General Practice | DX: R13.10 Dysphagia, unspecified (principal); Z92.3 Personal history of irradiation ==